=== PATIENT | male | born 1940 | race Caucasian/White ===

== ENCOUNTER 2016-10-29 12:48 | Outpatient (CLI) | payer MEDICARE, OTHER ==
[~2016-10-29] VITALS: Ht 185.4 cm; Wt 80.3 kg
[~2016-10-29 12:48] MED LIST: AC500T PO; AMLO10TA2 PO; AMLO5TAB2 PO; ASPI-892; ATOR40TA70 PO; ATOR80TA; CARV3.12; CLOP75TA; DOCU-143 PO; FAMO20TA5; GLUC1TAB; HYDR-3062 PO; MAGN400C PO; MAGN400T6 PO; MECL25TA56 PO; MULT-608; NAPR-243; NTR.4SL; OLME40TA14; OMEG1CAP74 PO; SCP1.5TD TOP; SOTA120T PO; SOTOLOL; TAMS0.4C98 PO
--- OUTSIDE RECORDS SUMMARY | 2016-10-29 12:52 | XMS REPORT | Continuity of Care Document ---
Author Author [facility] Organization [facility] Address Unknown Phone Unavailable Care Team Providers Care Certified Wellness Program Coordinator Name Role Phone JANES NAYLOR DO PCP Insurance Providers Payer Name Policy Number Subscriber Name Relationship Wps Medicare [id number] Aggie Mitchell 18 Self / Same As Patient [facility] [id number] Aggie Mitchell 18 Self / Same As Patient Advance Directives Directive Response Recorded Date/Time Advance Directives Yes 10/09/16 9:37am Health Care Power of Ict Business Analyst Yes 10/09/16 9:37am Organ Donor Yes 02/22/15 9:42am Resuscitation Status Full Code 10/09/16 9:37am Problems No problem information available. Medications Current Home Medications Medication Dose Units Route Directions Days/Qty Instructions Start Date Olmesartan 40 Mg Daily 07/11/09 Clopidogrel Bisulfate 75 Mg Daily 07/11/09 Aspirin 81 Mg Daily 07/11/09 Nitroglycerin 0.4 Mg As Needed 07/11/09 Acetaminophen 500 Mg 500 Mg Oral Twice A Day 06/01/12 Sotalol Hcl 120 Mg 120 Mg Oral Twice A Day 12/08/12 Magnesium Oxide 400 Mg 400 Mg Oral Twice A Day 12/08/12 Amlodipine Besylate 10 Mg 10 Mg Oral Daily 10/09/16 Atorvastatin Calcium 40 Mg 40 Mg Oral Bedtime 10/09/16 Tamsulosin Hcl 0.4 Mg 0.4 Mg Oral Bedtime 10/09/16 Past Home Medications Medication Directions Ordered Status Carvedilol 3.125 Mg Tablet, 07/11/09 Discontinued Famotidine (Pepcid) 20 Mg Tablet, 07/11/09 Discontinued Atorvastatin Calcium 80 Mg Tablet, Bedtime 07/11/09 Discontinued Multivitamins 1 Tab Tablet, Daily 07/11/09 Discontinued Gluc/Francis-Msm#1/C/Leonardo/Anibal/Bor 1 Each Tablet, 07/11/09 Discontinued [place]-3/Dha/Epa/Fish Oil 1,000 Mg Capsule, 3000 Mg Oral Daily 06/01/12 Discontinued Magnesium Oxide 400 Mg Tablet, 1 Each Oral Twice A Day With Meals 06/01/12 Discontinued [Sotolol] , 120 Mg Twice A Day 06/01/12 Discontinued Amlodipine Besylate (Norvasc 5 Mg) 5 Mg Tablet, 5 Mg Oral Daily 06/01/12 Discontinued Meclizine Hcl 25 Mg Tablet, 1 Each Oral Four Times Daily 06/03/12 Discontinued Scopolamine 1.5 Mg Patch, 1 Ea Topically Every 72 Hours 06/03/12 Discontinued Social History Social History Problem Response Recorded Date/Time Alcohol Use Denies Use 10/09/2016 9:37am Recreational Drug Use No 10/09/2016 9:37am Recent Foreign Travel No 10/09/2016 9:36am Recent Infectious Disease Exposure No 10/09/2016 9:36am Sexually Transmitted Disease No 10/09/2016 9:37am HIV/AIDS No 10/09/2016 9:37am Smoking Status Former Smoker 10/09/2016 9:37am Recent Hopitalizations No 10/09/2016 9:37am Sexually Transmitted Disease No 10/09/2016 9:37am Query Response Start Date Stop Date Smoking Status Former Smoker Hospital Discharge Instructions No hospital discharge instructions. Plan of Care Discharge Date 10/09/16 12:31pm Prescriptions See Medication Section Functional Status No functional status results. Allergies, Adverse Reactions, Alerts Allergen Type Severity Reaction Status Last Updated Iodinated Contrast Media - IV Dye Allergy Unknown rash Active 10/09/16 Immunizations No immunization records. Vital Signs Acute Vital Signs Vital Response Date/Time Pulse Rate (adult) 60 bpm (60 - 90) 10/09/2016 9:47am Respiratory Rate 16 bpm (12 - 24) 10/09/2016 9:47am O2 Sat by Pulse Oximetry 99 % (88 - 100) 10/09/2016 9:47am Blood Pressure 123/70 mm Hg 10/09/2016 9:47am Blood Pressure Mean 87 mm Hg 10/09/2016 9:47am Pain Numeric Pain Scale 0-No Pain 10/09/2016 9:47am Height (Feet) 6 feet 10/09/2016 9:34am Height (Inches) 1.00 inches 10/09/2016 9:34am Height (Calculated Centimeters) 185.308714 cm 10/09/2016 9:34am Weight (Pounds) 179 pounds 10/09/2016 9:34am Weight (Ounces) 1.0 oz 10/09/2016 9:34am Weight (Calculated Grams) 18138.39 gm 10/09/2016 9:34am Weight (Calculated Kilograms) 81.157413 kilograms 10/09/2016 9:34am Calculated BMI 23.6 10/09/2016 9:34am Results No known relevant diagnostic tests, laboratory data and/or discharge summary. Procedures No known history of procedures. Encounters Encounter Location Arrival/Admit Date Discharge/Depart Date Attending Provider Departed Clinic [facility] 10/09/16 9:29am 10/09/16 12: 31pm ARIEL STOLL DO
[2016-10-29 12:58] VITALS: BP 125/74
[2016-10-29] MEDS ORDERED: ASPI-586 PO (13:04)
[2016-10-29] MEDS ORDERED: CLOP75TA69 PO (13:04)
== END 2016-10-29 13:05 | disposition home or self-care (01) ==
LOC: PREOP 12:48
PROVIDERS: ATTEND Surgery
DX: Z01.818 Encounter for other preprocedural examination (principal); Z11.2 Encounter for screening for other bacterial diseases; D03.4 Melanoma in situ of scalp and neck
CPT/HCPCS: 87081

== ENCOUNTER 2016-10-31 11:46 | Day surgery (SDC) | payer MEDICARE, OTHER ==
[~2016-10-31] VITALS: Ht 185.4 cm; Wt 80.3 kg
[~2016-10-31 11:46] MED LIST changes: +ASPI-586 PO; +CLOP75TA69 PO
--- OUTSIDE RECORDS SUMMARY | 2016-10-31 11:49 | XMS REPORT | Continuity of Care Document ---
Author Author [facility] Organization [facility] Address Unknown Phone Unavailable Care Team Providers Care Right Of Way Manager Name Role Phone JANES NAYLOR DO PCP Insurance Providers Payer Name Policy Number Subscriber Name Relationship Wps Medicare [id number] Aggie Mitchell 18 Self / Same As Patient [facility] [id number] Aggie Mitchell 20 Self / Same As Patient Advance Directives Directive Response Recorded Date/Time Advance Directives Yes 10/09/16 9:37am Health Care Power of Interior Horticulturist Yes 10/09/16 9:37am Organ Donor Yes 02/22/15 [...] Discontinued Gluc/Francis-Msm#1/C/Leonardo/Anibal/Bor 1 Each Tablet, 07/11/09 Discontinued [place]-3/Dha/Epa/Fish Oil 1,000 Mg Capsule, 3000 Mg Oral [...] 1.00 inches 10/09/2016 9:34am Height (Calculated Centimeters) 185.621617 cm 10/09/2016 9:34am Weight (Pounds) 179 pounds 10/09/2016 9:34am Weight (Ounces) 1.0 oz 10/09/2016 9:34am Weight (Calculated Grams) 01609.39 gm 10/09/2016 9:34am Weight (Calculated Kilograms) 81.846060 kilograms 10/09/2016 9:34am Calculated BMI 23.6 10/09/2016 9:34am Results No known relevant diagnostic tests, laboratory data and/or discharge summary. Procedures No known history of procedures. Encounters Encounter Location Arrival/Admit Date Discharge/Depart Date Attending Provider Departed Clinic [facility] 10/09/16 9:29am 10/09/16 12: 31pm ARIEL STOLL DO
--- OUTSIDE RECORDS SUMMARY | 2016-10-31 11:49 | XMS REPORT | Continuity of Care Document ---
Author Author [facility] Organization [facility] Address Unknown Phone Unavailable Care Team Providers Care Resistor Coater Name Role Phone JANES NAYLOR DO PCP Insurance Providers Payer Name Policy Number Subscriber Name Relationship Wps Medicare [id number] Aggie Mitchell 18 Self / Same As Patient [facility] [id number] Aggie Mitchell 20 Self / Same As Patient Advance Directives Directive Response Recorded Date/Time Advance Directives Yes 10/09/16 9:37am Health Care Power of Relocation Commissioner Yes 10/09/16 9:37am Organ Donor Yes 02/22/15 [...] Discontinued Gluc/Francis-Msm#1/C/Leonardo/Anibal/Bor 1 Each Tablet, 07/11/09 Discontinued [place]-3/Dha/Epa/Fish Oil 1,000 Mg Capsule, 3000 Mg Oral [...] 1.00 inches 10/09/2016 9:34am Height (Calculated Centimeters) 185.037623 cm 10/09/2016 9:34am Weight (Pounds) 179 pounds 10/09/2016 9:34am Weight (Ounces) 1.0 oz 10/09/2016 9:34am Weight (Calculated Grams) 60302.39 gm 10/09/2016 9:34am Weight (Calculated Kilograms) 81.631971 kilograms 10/09/2016 9:34am Calculated BMI 23.6 10/09/2016 9:34am Results No known relevant diagnostic tests, laboratory data and/or discharge summary. Procedures No known history of procedures. Encounters Encounter Location Arrival/Admit Date Discharge/Depart Date Attending Provider Departed Clinic [facility] 10/09/16 9:29am 10/09/16 12: 31pm ARIEL STOLL DO
[2016-10-31] MEDS ORDERED: NORMAL SALINE (BAXTER MINI) 50 ML IV ONE (11:54)
[2016-10-31] MEDS ORDERED: ceFAZolin 1,000 MG (ANCEF) VIAL ONE (11:54)
[2016-10-31] MEDS ORDERED: LIDOCAINE 1% INJ 20 ML (XYLOCAINE) VIAL ONE (12:00)
[2016-10-31] MEDS ORDERED: BUPIVACAINE 0.5% 30 ML (SENSORCAINE) VIAL ONE (12:00)
[2016-10-31] MEDS ORDERED: LACTATED RINGERS 1,000 ML IV PRN (12:05)
[2016-10-31] MEDS ORDERED: ceFAZolin 1 GM/NS 50 ML IVPB IV ONE ×2 (12:15)
[2016-10-31] MEDS ORDERED: LACTATED RINGERS 1,000 ML IV ONE (12:28)
[2016-10-31] MEDS ORDERED: MIDAZOLAM 2 MG/2 ML (VERSED) VIAL ONE (12:28)
[2016-10-31] MEDS ORDERED: LIDOCAINE PF 2% 10 ML (XYLOCAINE) AMP ONE (12:28)
[2016-10-31] MEDS ORDERED: proPOfol 200 MG/20 ML (DIPRIVAN) VIAL IV ONE (12:28)
[2016-10-31] MEDS ORDERED: HYDR-3062 PO (12:33)
--- NOTE | 2016-10-31 12:37 | Discharge Inst-Simple/Standard ---
Discharge Inst-Standard Discharge Medications New, Converted or Re-Newed RX: RX on Chart Patient Instructions/Follow Up Plan of Care/Instructions/FU: Follow up with Dr. Browning in 12-14 days Hold aspirin and plavix for 3 more days Keep incision clean and dry Activity as Tolerated: No Discharge Diet: No Restrictions Other Inst to Patient Follow up Appt: Make appointment for 12- 14 days. Instructions: No lifting greater than 10 pounds. No strenuous activity. May shower in 24 hours, no tub bath or soaking. Use incentive spirometer at home as directed. No Smoking Skin/Wound Care: May remove bandages. You need to leave the white strips over incision on they will fall off on their own. Symptoms to Report: Appetite Changes, Extremity Discoloration, Numbness/Tingling, Swelling Increased , Bleeding Excessive, Eyesight Changes, Pain Increased, Urine Color Change, Constipation(Persistent), Fever over 101 degree F, Pain/Pressure in chest, Urinating Difficulty, Cough Up/Vomit Blood, Heart Beat Irreg/Pounding, Pain/ Pressure in jaw, Vaginal Bleeding Increase, Cramps in feet or legs, Lightheadedness, Pain/Pressure in shoulder, Diarrhea(Persistent), Memory Changes Suddenly, Questions/Concerns, Weight gain consecutive days, Dizziness/ Fainting, Nausea/Vomiting, Shortness of Breath, Weight gain over 2 pounds If questions or concerns contact your physician Or seek help at emergency department. MICHAEL BRYANT APRN Oct 31, 2016 12:37
--- NOTE | 2016-10-31 12:43 | Progress Note-Pre Operative ---
Pre-Operative Progress Note H&P Reviewed The H&P was reviewed, patient examined and no changes noted. Date H&P Reviewed: Oct 31, 2016 Time H&P Reviewed: 12:42 Pre-Operative Diagnosis: melanoma in situ ARIEL STOLL DO Oct 31, 2016 12:43
[2016-10-31 13:07] VITALS: BP 120/70
--- NOTE | 2016-10-31 13:32 | Progress Note-Post Operative ---
Post-Operative Progess Note Pre-Operative Diagnosis melanoma in situ Post-Operative Diagnosis same Post-Op Procedure Note Date of Procedure: Oct 31, 2016 Name of Procedure: reexcision scalp melanoma in situ 4.5 x 1.8 cm Procedure Note/Findings see note Anesthesia Type mac c local Estimated blood loss (mL): minimal Specimen(s) collected scalp lesion posterior short suture, long suture right lateral STOLL,ARIEL Palacios DO Oct 31, 2016 1:32 pm
[2016-10-31] MEDS ORDERED: ONDANSETRON 4 MG/2 ML (SDV) Z0FRAN IVP PRN (13:45)
[2016-10-31] MEDS ORDERED: morphine INJ 10 MG/ML 1ML (SYR OR VIAL) IVP PRN (13:45)
[2016-10-31 13:55] VITALS: BP 149/87
[2016-10-31] MEDS ORDERED: HYDROcodone/APAP 5 MG/325 MG (LORTAB) TAB ONE (13:59)
[2016-10-31] MEDS ORDERED: HYDROcodone/APAP 5 MG/325 MG (LORTAB) TAB PO ONE (14:15)
[2016-10-31 14:25] VITALS: BP 133/76
[2016-10-31 14:55] VITALS: BP 144/78
[2016-10-31 15:00] VITALS: BP 144/78
--- NOTE | 2016-11-01 07:44 | OPERATIVE REPORT ---
PROCEDURE PHYSICIAN: ARIEL BROWNING DATE OF PROCEDURE: 10/31/2016 PREOPERATIVE DIAGNOSIS: Melanoma in situ. POSTOPERATIVE DIAGNOSIS: Melanoma in situ. PROCEDURE: Reexcision of scalp melanoma in situ 4.5 x 1.8 cm. SURGEON: Dr. Browning. ANESTHESIA: MAC with local. COMPLICATIONS: None. ESTIMATED BLOOD LOSS: Minimal. INDICATIONS: The patient is a 76-year-old male with a melanoma in situ of the scalp. He had previous excision which did not have negative margins. The patient was explained risk and benefits of the procedure and wished to proceed with the procedure. Consent was signed on the chart. PROCEDURE: The patient was taken to the operating suite. He was prepped and draped in sterile fashion. A surgical pause was performed. Local anesthetic was infiltrated into the scalp. An elliptical incision measuring 4.5 x 1.8 cm around the existing scar was made. Cautery was used to achieve hemostasis as the skin and subcutaneous tissues were removed. Once removed, the skin had to be mobilized; therefore, cautery was used to go circumferentially in order to mobilize the skin. The skin was then closed using 2-0 nylon in a simple interrupted fashion. The patient tolerated the procedure well without any complications. He was taken to recovery room in stable condition. Job ID: [id number] Dictated Date: 10/31/2016 13:31:54 Imaging Analyst Date: 11/01/2016 07:41:13 / spencer
== END 2016-10-31 15:00 | disposition home or self-care (01) ==
LOC: SDC 11:46
PROVIDERS: ATTEND Surgery
DX: D03.4 Melanoma in situ of scalp and neck (principal)

== ENCOUNTER 2016-12-04 10:06 | Outpatient (RCR) | payer MEDICARE, OTHER ==
--- OUTSIDE RECORDS SUMMARY | 2016-12-04 10:09 | XMS REPORT | Continuity of Care Document ---
Author Author [facility] Organization [facility] Address Unknown Phone Unavailable Care Team Providers Care Captain Fishing Vessel Name Role Phone JANES NAYLOR DO PCP Insurance Providers Payer Name Policy Number Subscriber Name Relationship Wps Medicare [id number] Aggie Mitchell 20 Self / Same As Patient [facility] [id number] Aggie Mitchell 20 Self / Same As Patient Advance Directives Directive Response Recorded Date/Time Advance Directives Yes 10/09/16 9:37am Health Care Power of Medical Transcription Yes 10/09/16 9:37am Organ Donor Yes 02/22/15 [...] Discontinued Gluc/Francis-Msm#1/C/Leonardo/Anibal/Bor 1 Each Tablet, 07/11/09 Discontinued [place]-3/Dha/Epa/Fish Oil 1,000 Mg Capsule, 3000 Mg Oral [...] 1.00 inches 10/09/2016 9:34am Height (Calculated Centimeters) 185.536774 cm 10/09/2016 9:34am Weight (Pounds) 179 pounds 10/09/2016 9:34am Weight (Ounces) 1.0 oz 10/09/2016 9:34am Weight (Calculated Grams) 57420.39 gm 10/09/2016 9:34am Weight (Calculated Kilograms) 81.266104 kilograms 10/09/2016 9:34am Calculated BMI 23.6 10/09/2016 9:34am Results No known relevant diagnostic tests, laboratory data and/or discharge summary. Procedures No known history of procedures. Encounters Encounter Location Arrival/Admit Date Discharge/Depart Date Attending Provider Departed Clinic [facility] 10/09/16 9:29am 10/09/16 12: 31pm ARIEL TSOLL DO
== END 2017-03-04 | disposition home or self-care (01) ==
LOC: ONC 10:06
PROVIDERS: ATTEND Internal Medicine Hematology & Oncology
DX: D03.4 Melanoma in situ of scalp and neck (principal); I25.10 Atherosclerotic heart disease of native coronary artery without angina pectoris; I11.0 Hypertensive heart disease with heart failure; I50.9 Heart failure, unspecified; E78.5 Hyperlipidemia, unspecified; I27.2 Other secondary pulmonary hypertension; Z79.899 Other long term (current) drug therapy
CPT/HCPCS: 99214

== ENCOUNTER → 2017-09-03 | Outpatient (CLI) | payer MEDICARE, BC | LOC: CARD 10:43 | PROVIDERS: ATTEND Internal Medicine Cardiovascular Disease | DX: I51.7 Cardiomegaly (principal); I34.0 Nonrheumatic mitral (valve) insufficiency; I35.9 Nonrheumatic aortic valve disorder, unspecified | CPT/HCPCS: 93306 ==

== ENCOUNTER → 2017-09-08 | Outpatient (CLI) | payer MEDICARE, BC ==
[~2017-09-08] MED LIST changes: +CATHETER FLUSH 10 ML SYR IV PRN; +REGADENOSON 0.4 MG/5 ML SYR (LEXISCAN) IV ONE
[2017-09-08 09:42] VITALS: BP 137/80
--- NOTE | 2017-09-08 23:01 | STRESS TEST ---
DATE OF SERVICE: 09/08/2017 LEXISCAN MYOVIEW STRESS TEST REPORT Baseline heart rate is 67. Baseline blood pressure 137/80. Baseline EKG is sinus rhythm with no ischemic changes. In summary, the patient was injected with 9.95 mCi of technetium-99 Myoview and the resting images were obtained. Then, the patient received 0.4 mg of Lexiscan followed by 31.2 mCi of technetium-99 Myoview. Throughout the test, there were no EKG changes. The resting and stress images were reviewed and compared in the short axis, horizontal long axis, and vertical long axis views. Review of the images showed diaphragmatic attenuation with mild decreased uptake at the inferoapical segment, which appeared to be fixed. No significant ischemia was noted. SSS is 2, SDS is 0. TID value is 0.93. On the gated images, the left ventricle appeared to be normal size with normal contractility. Calculated ejection fraction is 51%. CONCLUSION: 1. The patient tolerated Lexiscan well. 2. Diaphragmatic attenuation with typical male pattern. No significant ischemia was noted or infarction. 3. Normal left ventricular size with normal contractility, calculated ejection fraction 51%. Job ID: [id number] DocumentID: [id number] Dictated Date: 09/08/2017 16:49:36 Spot Cleaner Date: 09/08/2017 20:17:04 Dictated By: DANIEL GARCIA MD
== END ==
LOC: CARD 08:06
PROVIDERS: ATTEND Internal Medicine Cardiovascular Disease
DX: I25.10 Atherosclerotic heart disease of native coronary artery without angina pectoris (principal); I11.0 Hypertensive heart disease with heart failure; I50.22 Chronic systolic (congestive) heart failure; E78.2 Mixed hyperlipidemia; I49.3 Ventricular premature depolarization
CPT/HCPCS: 78452; 93017

== ENCOUNTER → 2017-12-01 | Outpatient (CLI) | payer MEDICARE, BC ==
[~2017-12-01] MED LIST changes: -CATHETER FLUSH 10 ML SYR IV PRN; -REGADENOSON 0.4 MG/5 ML SYR (LEXISCAN) IV ONE
== END ==
LOC: ONC 08:58
PROVIDERS: ATTEND Internal Medicine Hematology & Oncology
DX: Z08 Encounter for follow-up examination after completed treatment for malignant neoplasm (principal); Z85.820 Personal history of malignant melanoma of skin; Z79.899 Other long term (current) drug therapy
CPT/HCPCS: 99213

== ENCOUNTER 2019-05-04 06:07 | Day surgery (SDC) | payer MEDICARE, BC ==
[~2019-05-04] VITALS: Ht 185.4 cm; Wt 80.3 kg
[2019-05-04] VITALS (10 sets, daily range): BP systolic 109–127; BP diastolic 70–78
[~2019-05-04 06:07] MED LIST changes: +ACET-93 PO; -AMLO10TA2 PO; +AMLO10TA7 PO; +MAGN400T7 PO; +OLME40TA18 PO; +OXYB10TA PO
[2019-05-04] MEDS ORDERED: LACTATED RINGERS 1,000 ML IV PRN (06:26)
[2019-05-04] MEDS ORDERED: cefTRIAXone FOR IV USE 1,000 MG in WATER (STERILE) FOR INJECTION 10 ML IV ONE (06:30)
[2019-05-04] MEDS ORDERED: ONDANSETRON 4 MG/2 ML (SDV) Z0FRAN ONE (06:57)
[2019-05-04] MEDS ORDERED: proPOfol 200 MG/20 ML (DIPRIVAN) VIAL IV ONE (06:57)
[2019-05-04] MEDS ORDERED: DEXAMETHASONE 10 MG/ML (DECADRON) 1 ML VIAL ONE (06:57)
[2019-05-04] MEDS ORDERED: LIDOCAINE PF 2% 5 ML (XYLOCAINE) VIAL ONE (06:57)
--- NOTE | 2019-05-04 06:57 | Progress Note-Pre Operative ---
Pre-Operative Progress Note H&P Reviewed The H&P was reviewed, patient examined and no changes noted. Date Seen by Provider: May 04, 2019 Time Seen by Provider: 06:57 Date H&P Reviewed: May 04, 2019 Time H&P Reviewed: 06:57 Pre-Operative Diagnosis: BPH WITH PROSTATISM HEBER LANDERS MD May 04, 2019 06:57
[2019-05-04] MEDS ORDERED: fentaNYL INJECTION 100 MCG/2 ML AMP ONE (06:58)
--- NOTE | 2019-05-04 07:01 | Progress Note-Post Operative ---
Post-Operative Progess Note Surgeon (s)/Corporate Executive (s) Surgeon HEBER LANDERS MD Corporate Executive: NONE Pre-Operative Diagnosis BPH WITH PROSTATISM Post-Operative Diagnosis SAME Procedure & Operative Findings Date of Procedure 05/04/19 Procedure Performed/Findings UROLIFT IMPLANTS Anesthesia Type GENERAL Estimated Blood Loss Estimated blood loss (mL): NEGLIGIBLE Specimens/Packing Specimens Removed NONE Packing: LINCOLN TO HEBER GUTIERREZ MD May 04, 2019 07:01
--- NOTE | 2019-05-04 07:04 | Discharge Inst-Urology ---
Discharge Inst-Urology Discharge Medications New, Converted, or Re-newed RX: RX on Chart Patient Instructions/Follow Up Plan Please make appointment to been seen in office in 2 weeks. Rest till then Off ASA, Flomax, and Oxybutin Keep bowels soft and moving Increase oral fluids for 48 hours and then as needed. Diet as tolerated. If questions or concerns contact your physician Or seek help at emergency department. HEBER LANDERS MD May 04, 2019 07:04
[2019-05-04] MEDS ORDERED: PHEN-640 PO (07:23)
[2019-05-04] MEDS ORDERED: SULF1TAB35 PO (07:23)
[2019-05-04] MEDS ORDERED: SEVOFLURANE (ULTANE) 15 ML INHAL SOLN ONE (07:52)
[2019-05-04] MEDS ORDERED: MEPERIDINE (DEMEROL) INJ 50 MG/ML IVP ONE (08:15)
[2019-05-04] MEDS ORDERED: morphine INJ 10 MG/ML 1ML (SYR OR VIAL) IVP ONE (08:15)
[2019-05-04] MEDS ORDERED: ONDANSETRON 4 MG/2 ML (SDV) Z0FRAN IVP PRN (08:15)
[2019-05-04] MEDS ORDERED: PHENAZOPYRIDINE 100 MG (PYRIDIUM) TABLET ONE (08:54)
[2019-05-04] MEDS ORDERED: PHENAZOPYRIDINE 100 MG (PYRIDIUM) TABLET PO ONE (09:15)
--- NOTE | 2019-05-04 09:25 | OPERATIVE REPORT ---
DATE OF SERVICE: 05/04/2019 PREOPERATIVE DIAGNOSIS: BPH with prostatism. POSTOPERATIVE DIAGNOSIS: BPH with prostatism. OPERATION PERFORMED: UroLift implants. SURGEON: Naren Landers MD ANESTHESIA: General. COMPLICATIONS: None. DESCRIPTION OF PROCEDURE: Under satisfactory general anesthesia, the patient in lithotomy position, genitalia were prepped and draped in the usual sterile fashion. A special scope of the UroLift was inserted and the bladder was emptied. I went ahead and inserted the UroLift implant, starting first on the left lateral lobe, 1.5 cm from the bladder neck using the described technique and similarly on the right side. Then backed up and the third UroLift was put just proximal to veru on both sides. There was excellent opening of the channel. There was some oozing from the bladder neck area. I elected to leave the catheter until he wakes up and see how it looks. So, I inserted a 22-Nepali 3-way 10 mL balloon catheter and inflated the balloon to 10 mL, and put it on some traction to control the bleeding and see how he does when he wakes up to the sign of the catheter. Estimated blood loss was negligible. The patient tolerated the procedure and anesthesia well and was sent to recovery room in stable condition. Job ID: [id number] DocumentID: [id number] Dictated Date: 05/04/2019 08:10:07 Cableman Date: 05/04/2019 09:24:39 Dictated By: NAREN LANDERS MD
--- NOTE | 2019-05-04 10:25 | NUR ---
DR. LANDERS SAID TO REMOVE THE LINCOLN AND SEND THE PATIENT HOME.
--- NOTE | 2019-05-04 11:34 | Anesthesia-General Post-Op ---
General Patient Condition Mental Status/LOC: Same as Preop Cardiovascular: Satisfactory Nausea/Vomiting: Absent Respiratory: Satisfactory Pain: Controlled Complications: Absent Post Op Complications Complications None Follow Up Care/Instructions Patient Instructions None needed. Anesthesia/Patient Condition Patient Condition Patient was seen this morning after the procedure and he was doing well, no complaints, stable vital signs, no apparent adverse anesthesia problems. SAMARA BAUTISTA DO May 04, 2019 11:34
== END 2019-05-04 10:45 | disposition home or self-care (01) ==
LOC: SDC 06:07
PROVIDERS: ATTEND Urology
DX: N40.1 Benign prostatic hyperplasia with lower urinary tract symptoms (principal); N32.81 Overactive bladder; I11.0 Hypertensive heart disease with heart failure; I50.9 Heart failure, unspecified; I25.10 Atherosclerotic heart disease of native coronary artery without angina pectoris; M19.91 Primary osteoarthritis, unspecified site; Z85.820 Personal history of malignant melanoma of skin; Z11.2 Encounter for screening for other bacterial diseases; Z87.891 Personal history of nicotine dependence; Z79.82 Long term (current) use of aspirin; Z79.899 Other long term (current) drug therapy
CPT/HCPCS: 87081

== ENCOUNTER → 2019-07-27 | Outpatient (CLI) | payer MEDICARE, BC ==
[~2019-07-27] MED LIST changes: +PHEN-640 PO; +SULF1TAB35 PO
== END ==
LOC: CARD 11:35
PROVIDERS: ATTEND Internal Medicine Cardiovascular Disease
DX: I34.0 Nonrheumatic mitral (valve) insufficiency (principal); I49.5 Sick sinus syndrome; I49.3 Ventricular premature depolarization; E78.5 Hyperlipidemia, unspecified; I11.9 Hypertensive heart disease without heart failure; I25.10 Atherosclerotic heart disease of native coronary artery without angina pectoris
CPT/HCPCS: 93306

== ENCOUNTER → 2020-08-02 | Outpatient (CLI) | payer MEDICARE, BC ==
[~2020-08-02] VITALS: Ht 193 cm; Wt 81.0 kg
[~2020-08-02] MED LIST changes: +ACHD5005 PO; +CATHETER FLUSH 10 ML SYR IV PRN; -HYDR-3062 PO; -OXYB10TA PO; +OXYB10TA29 PO; +REGADENOSON 0.4 MG/5 ML SYR (LEXISCAN) IV ONE; -TAMS0.4C98 PO; +TMSL.4C PO
[2020-08-02 09:08] VITALS: BP 136/80
[2020-08-02 09:17] VITALS: BP 136/80
[2020-08-02 09:18] VITALS: BP 123/69
--- NOTE | 2020-08-02 12:39 | Cardiology Stress Test Report ---
Stress Test Report Date of Procedure/Referring: Date of Procedure: Aug 02, 2020 PCP Daniel Cat MD Admitting Physician Diamond Cerna DO Indications: Coronary artery disease Baseline Heart Rate: 64 Baseline Blood Pressure: Blood Pressure Systolic: 123 Blood Pressure Diastolic: 69 Baseline Vitals Vital Signs Date Time Temp Pulse Resp B/P (MAP) Pulse Ox O2 Delivery O2 Flow Rate FiO2 08/02/20 09:08 81 17 136/80 (98) 99 Room Air Baseline EKG: Baseline EKG: normal sinus rhythm Summary After explaining the procedure to the patient, he signed a consent and then brought to the stress nuclear laboratory. Patient received 0.4 mg Lexiscan for stress test, ECG, heart rate and blood pressure were monitored continuously. Resting and stress dose of radio tracer were injected, imaging was acquired and reviewed in short axis, horizontal long axis and vertical long axis views. TID: 0.97 SSS: 4 SDS: 0 EF: 50 1. Patient tolerated Lexiscan well 2. Frequent premature ventricular contractions, ventricular bigeminy induced by Lexiscan injection 3. Significant extracardiac attenuation affecting the quality of the images, there is decreased uptake involving the whole inferior wall and inferolateral wall, no significant reversibility was noted due to the extracardiac att enuation. Still overall nondiagnostic study 4. Normal left ventricular size, inferior wall hypokinesia, EF 50 percent DANIEL CAT MD Aug 02, 2020 12:39
== END ==
LOC: CARD 07:45
PROVIDERS: ATTEND Internal Medicine Cardiovascular Disease
DX: I25.10 Atherosclerotic heart disease of native coronary artery without angina pectoris (principal); I50.22 Chronic systolic (congestive) heart failure; I11.0 Hypertensive heart disease with heart failure; E78.2 Mixed hyperlipidemia; I49.5 Sick sinus syndrome
CPT/HCPCS: 78452; 93017; A9502

== ENCOUNTER → 2020-09-20 | Outpatient (CLI) | payer MEDICARE, BC ==
[~2020-09-20] MED LIST changes: +AMLO-251 PO; -AMLO10TA7 PO; -CATHETER FLUSH 10 ML SYR IV PRN; -REGADENOSON 0.4 MG/5 ML SYR (LEXISCAN) IV ONE
== END ==
LOC: CARD 10:00
PROVIDERS: ATTEND Internal Medicine Cardiovascular Disease
DX: I25.10 Atherosclerotic heart disease of native coronary artery without angina pectoris (principal); I08.1 Rheumatic disorders of both mitral and tricuspid valves
CPT/HCPCS: 93306

== ENCOUNTER → 2020-10-16 | Outpatient (CLI) | payer MEDICARE, BC | LOC: CARD 08:30 | PROVIDERS: ATTEND Family Medicine | DX: R00.1 Bradycardia, unspecified (principal); Z53.8 Procedure and treatment not carried out for other reasons ==

== ENCOUNTER → 2021-01-08 | Outpatient (CLI) | payer MEDICARE, BC | LOC: LABNPT 07:13 | PROVIDERS: ATTEND Orthopaedic Surgery | DX: Z01.812 Encounter for preprocedural laboratory examination (principal); Z20.822 Contact with and (suspected) exposure to COVID-19 | CPT/HCPCS: 87635 ==

== ENCOUNTER → 2021-09-24 | Outpatient (CLI) | payer MEDICARE, BC ==
[~2021-09-24] MED LIST changes: -SULF1TAB35 PO; +SULF1TAB38 PO
== END ==
LOC: CARD 13:30
PROVIDERS: ATTEND Internal Medicine Cardiovascular Disease
DX: I08.1 Rheumatic disorders of both mitral and tricuspid valves (principal); I11.9 Hypertensive heart disease without heart failure
CPT/HCPCS: 93306

== ENCOUNTER 2022-02-14 06:35 | Outpatient (CLI) | payer MEDICARE, BC ==
[~2022-02-14] VITALS: Ht 185 cm; Wt 88.6 kg
[2022-02-14] MEDS ORDERED: TMSL.4C PO (14:28)
== END 2022-02-14 14:49 | disposition home or self-care (01) ==
LOC: PREOP 06:35
PROVIDERS: ATTEND Surgery
DX: Z01.818 Encounter for other preprocedural examination (principal)

== ENCOUNTER 2022-02-26 11:46 | Day surgery (SDC) | payer MEDICARE, BC ==
[~2022-02-26] VITALS: Ht 185 cm; Wt 88.6 kg
[2022-02-26] MEDS ORDERED: LACTATED RINGERS 1,000 ML IV STA (11:51)
[2022-02-26] MEDS ORDERED: LACTATED RINGERS 1,000 ML IV ONE (11:54)
[2022-02-26 12:13] VITALS: BP 145/79
--- NOTE | 2022-02-26 12:33 | Progress Note-Pre Operative ---
Pre-Operative Progress Note H&P Reviewed The H&P was reviewed, patient examined and no changes noted. Date Seen by Provider: February 26, 2022 Time Seen by Provider: 12:33 Date H&P Reviewed: February 26, 2022 Time H&P Reviewed: 12:33 Pre-Operative Diagnosis: screening colonoscopy ARIEL STOLL DO February 26, 2022 12:33
[2022-02-26] MEDS ORDERED: PROPOFOL INJECTION 50 ML IV ONE (13:05)
[2022-02-26 13:50] VITALS: BP 131/71
[2022-02-26 13:55] VITALS: BP 132/61
--- NOTE | 2022-02-26 13:55 | Discharge Inst-Simple/Standard ---
Discharge Inst-Standard Patient Instructions/Follow Up Plan of Care/Instructions/FU: Nma on as needed basis Activity as Tolerated: Yes Discharge Diet: Regular Diet (high fiber) ARIEL STOLL DO February 26, 2022 13:55
--- NOTE | 2022-02-26 14:08 | Anesthesia-General Post-Op ---
MAC Patient Condition Mental Status/LOC: Same as Preop Cardiovascular: Satisfactory Nausea/Vomiting: Absent Respiratory: Satisfactory Pain: Controlled Complications: Absent Post Op Complications Complications None Follow Up Care/Instructions Patient Instructions None needed. Anesthesiology Discharge Order Discharge Order Patient is doing well, no complaints, stable vital signs, no apparent adverse anesthesia problems. SAMARA BAUTISTA DO February 26, 2022 14:08
[2022-02-26 14:25] VITALS: BP 132/90
[2022-02-26 14:36] VITALS: BP 132/90
--- NOTE | 2022-02-26 17:59 | OPERATIVE REPORT ---
DATE OF SERVICE: 02/26/2022 PREOPERATIVE DIAGNOSIS: Screening colonoscopy. POSTOPERATIVE DIAGNOSIS: Diverticulosis. PROCEDURE PERFORMED: Colonoscopy. SURGEON: Ariel Browning DO ANESTHESIA: Per MDA. ESTIMATED BLOOD LOSS: None. COMPLICATIONS: None. INDICATIONS FOR PROCEDURE: The patient is a 81-year-old male, who was referred for colonoscopy. He understands risks and benefits of the procedure and wishes to proceed. Consent was signed in the chart. DESCRIPTION OF PROCEDURE: The patient was taken to the endoscopy suite and placed in the left lateral recumbent position. Timeout was performed. Digital rectal exam was performed. No palpable polyps, masses or ulcerations. Scope was inserted in the rectum, advanced all the way to the cecum with minimal difficulty. Prep was adequate. Scope was slowly retracted back. No polyps, masses or ulcerations in the cecum, ascending, transverse, descending and sigmoid colon. Significant diverticulosis through the sigmoid colon. Once in the rectum, scope was retroflexed noting no other pathology. Scope was returned to its normal position, slowly withdrawn until completely removed. The patient tolerated the procedure well without any complications and taken to the recovery room in stable condition. RECOMMENDATIONS: The patient does not need any further colonoscopies unless is symptomatic. The patient will follow up on as-needed basis. We would recommend high fiber diet. Job ID: [id number] DocumentID: [id number] Dictated Date: 02/26/2022 13:53:52 Storage Battery Inspector Date: 02/26/2022 17:59:10 Dictated By: ARIEL BROWNING DO
== END 2022-02-26 14:40 | disposition home or self-care (01) ==
LOC: ENDO 11:46
PROVIDERS: ATTEND Surgery
DX: Z12.11 Encounter for screening for malignant neoplasm of colon (principal); K57.30 Diverticulosis of large intestine without perforation or abscess without bleeding; Z87.891 Personal history of nicotine dependence; Z79.82 Long term (current) use of aspirin; Z95.5 Presence of coronary angioplasty implant and graft

== ENCOUNTER → 2022-12-11 | Outpatient (CLI) | payer MEDICARE, BC ==
[~2022-12-11] MED LIST changes: +CLOP-31 PO; -CLOP75TA69 PO
[2022-12-11 16:05] LABS: BASOPHILS # (AUTO) 0.1 10^3/uL (0.0-0.1); BASOPHILS % (AUTO) 1 % (0-10); EOSINOPHILS # (AUTO) 0.1 10^3/uL (0.0-0.3); EOSINOPHILS % (AUTO) 1 % (0-10); HEMATOCRIT 42 % (40-54); HEMOGLOBIN 13.9 g/dL (13.3-17.7); LYMPHOCYTES # (AUTO) 1.3 10^3/uL (1.0-4.0); LYMPHOCYTES % (AUTO) 13 % (12-44); MEAN CORPUSCULAR HEMOGLOBIN 28 pg (25-34); MEAN CORPUSCULAR HGB CONC 33 g/dL (32-36); MEAN CORPUSCULAR VOLUME 85 fL (80-99); MEAN PLATELET VOLUME 11.2 fL (9.0-12.2); MONOCYTES # (AUTO) 1.6 10^3/uL (0.0-1.0); MONOCYTES % (AUTO) 17 % (0-12); NEUTROPHILS # (AUTO) 6.3 10^3/uL (1.8-7.8); NEUTROPHILS % (AUTO) 67 % (42-75); PLATELET COUNT 193 10^3/uL (130-400); WHITE BLOOD COUNT 9.4 10^3/uL (4.3-11.0)
--- NOTE | 2022-12-11 16:12 | Diagnostic Imaging Report ---
INDICATION: Cough. FINDINGS: The pacemaker device is stable. The heart is mildly enlarged but no failure, vascular congestion, edema, pneumonia, effusion, or pneumothorax. IMPRESSION: No acute appearing abnormality. Dictated by: Dictated on workstation # [id number]
[2022-12-11 16:16] LABS: POTASSIUM 4.1 MMOL/L (3.6-5.0)
[2022-12-11 16:17] LABS: CALCIUM 8.8 MG/DL (8.5-10.1)
[2022-12-11 16:18] LABS: TOTAL PROTEIN 6.3 GM/DL (6.4-8.2)
[2022-12-11 16:20] LABS: BILIRUBIN,TOTAL 0.7 MG/DL (0.1-1.0)
[2022-12-11 16:22] LABS: CREATININE SERUM 0.78 MG/DL (0.60-1.30)
[2022-12-11 16:45] LABS: FREE T4 (FREE THYROXINE) 0.98 NG/DL (0.70-1.48)
== END ==
LOC: CARD 15:19
PROVIDERS: ATTEND Family Medicine
DX: U07.1 COVID-19 (principal); I49.9 Cardiac arrhythmia, unspecified; R05.9 Cough, unspecified
CPT/HCPCS: 36415; 71046; 80053; 84439; 84443; 85025; 85379; 86141; 93005

== ENCOUNTER 2023-04-23 15:47 | Emergency (ER) | payer MEDICARE, BC ==
[~2023-04-23] VITALS: Ht 183 cm; Wt 84.0 kg
[2023-04-23 15:56] VITALS: BP 149/64
--- NOTE | 2023-04-23 17:37 | ED GU-Male ---
General Chief Complaint: - Reproductive Stated Complaint: CATHETER LEAKING Nursing Triage Note: PT HAD A AQUBLATION URINARY PROCEDURE DONE IN [place] YESTERDAY, LEG BAG IN PLACE, CC OF LEAKING AROUND THE CATHETER Source: patient Exam Limitations: no limitations History of Present Illness Date Seen by Provider: Apr 23, 2023 Time Seen by Provider: 17:14 Initial Comments 82-year-old male presents to the ER for concerns with his catheter. He states that yesterday he had an aqua ablation of his prostate due to BPH. He left the hospital today with a Vásquez and leg bag. He came in this evening due to leakage around the catheter from his penis. He states he feels as though the catheter is not draining correctly. He denies any fevers. He is scheduled to see his urologist on Friday. There is blood noted in the bag, patient states that his urologist said that this is normal and the color is appropriate. Allergies and Home Medications Allergies Coded Allergies: Iodinated Contrast- Oral and IV Dye (Verified Allergy, Mild, rash, 04/29/19) Patient Home Medication List Home Medication List Reviewed: Yes Acetaminophen (Acetaminophen) 500 Mg Tablet, 500 MG PO DAILY, (Reported) Entered as Reported by: LETI GILES on 04/29/19 1454 Amlodipine Besylate (Amlodipine Besylate) 10 Mg Tablet, 10 MG PO DAILY, (Reported) Entered as Reported by: LETI GILES on 10/09/16 0942 Atorvastatin Calcium (Atorvastatin Calcium) 40 Mg Tablet, 40 MG PO HS, (Reported) Entered as Reported by: LETI GILES on 10/09/16 0942 Magnesium Oxide (Magnesium Oxide) 400 Mg Tablet, 400 MG PO BID, (Reported) Entered as Reported by: LETI GILES on 04/29/19 1459 Olmesartan Medoxomil (Olmesartan Medoxomil) 40 Mg Tablet, 40 MG PO DAILY, (Reported) Entered as Reported by: LETI GILES on 04/29/19 145 Sotalol HCl (Sotalol) 120 Mg Tablet, 120 MG PO BID, (Reported) Entered as Reported by: LETI GILES on 04/29/19 1459 Tamsulosin HCl (Flomax) 0.4 Mg Cap, 0.4 MG PO DAILY, (Reported) Entered as Reported by: DEMOND WHATLEY on 02/14/22 1428 Review of Systems Review of Systems Constitutional: see HPI Past Ssknmex-Abtlrn-Ysckmw Hx Patient Social History Tobacco Use?: No Substance use?: No Alcohol Use?: No Immunizations Up To Date First/Initial COVID19 Vaccinat: 01-11-22 Second COVID19 Vaccination Nacho: 01-11-22 Third COVID19 Vaccination Date: 01-11-22 Seasonal Allergies Seasonal Allergies: No Past Medical History Surgery/Hospitalization HX: AQUBLATION URINARY PROCEDURE, PACE/DEFIB, BPH AND URINARY RETENTION, BI LAT KNEES, NECK FUSION Surgeries: Yes Coronary Stent, Defibrillator, Orthopedic, Pacemaker Respiratory: No Cardiac: Yes (PACER/DEFIB, STENT) Hypertension, Irregular Heartbeat Neurological: No Reproductive Disorders: No Sexually Transmitted Disease: No HIV/AIDS: No Genitourinary: Yes Benign Prostatic Hyperpl Gastrointestinal: No Musculoskeletal: No Arthritis Endocrine: No HEENT: Yes Cataract Loss of Vision: Denies Hearing Impairment: Hard of Hearing Cancer: Yes Melanoma Did You Recieve Any Treatments: Yes What Type of Treatment Did You: Surgical Intervention Psychosocial: No Integumentary: No Blood Disorders: No Adverse Reaction/Blood Tranf: No Physical Exam Vital Signs Vital Signs - First Documented 04/23/23 15:56 Temp 37.1 Pulse 60 Resp 18 B/P (MAP) 149/64 (92) Pulse Ox 96 O2 Delivery Room Air Capillary Refill : Less Than 3 Seconds Height, Weight, BMI Height: 6'1.00" Weight: 177lbs. 0.0oz. [id number]; 25.00 BMI Method: General Appearance: WD/WN, no apparent distress Neck: supple, normal inspection Cardiovascular: regular rate, rhythm Respiratory: lungs clear, normal breath sounds, no respiratory distress, no accessory muscle use Genital/Rectal: blood at urethral meatus, other (Blood in urine in Vásquez) Extremities: normal range of motion, normal inspection Neurologic/Psychiatric: alert, normal mood/affect Skin: normal color Progress/Results/Core Measures Suspected Sepsis SIRS Temperature: Pulse: 60 Respiratory Rate: 18 Blood Pressure 149 /64 Mean: 92 Results/Orders Vital Signs/I&O 04/23/23 15:56 Temp 37.1 Pulse 60 Resp 18 B/P (MAP) 149/64 (92) Pulse Ox 96 O2 Delivery Room Air Capillary Refill : Less Than 3 Seconds Blood Pressure Mean: 92 Progress Note : Progress Note Patient seen and evaluated, resting comfortably in bed, no acute distress. Called [facility] in [place], [place] to speak with patient's urologist. They are going to page his urologist and call me back. 1802 patient later told me that they were told that his catheter would just need to be flushed. We will attempt to flush catheter while waiting on a return phone call from patient's urologist. 1805 nursing staff to flush the catheter, instant return of liquids through Vásquez, no leakage around the Vásquez catheter. There was possibly something clogging the vásquez that resulted in the leakage of urine. I am comfortable discharging at this time without speaking with urology due to catheter being able to be flushed easily, and no continued leakage, patient is not having abdominal pain, and Vásquez appears to be working. Discharge instructions and return precautions provided. 1912 patient has already left, but Dr. Carrion, urology at [facility] in [facility], returned my phone call at this time. He was okay that we flush the catheter and he was okay with discharge since the catheter was working at the time of discharge. Departure Impression Primary Impression: Vásquez catheter problem Disposition: 01 HOME, SELF-CARE Condition: Stable Departure-Patient Inst. Decision time for Depature: 18:10 Referrals: JANES NAYLOR DO (PCP/Family) Primary Care Physician Patient Instructions: Urinary Obstruction (DC) Add. Discharge Instructions: Follow-up with urology as scheduled. Return for no urinary output, severe abdominal pain, or any other new, concerning, or worsening symptoms. All discharge instructions reviewed with patient and/or family. Voiced understanding. JESUS ALBERTO AMADOR APRN Apr 23, 2023 17:37
== END 2023-04-23 18:14 | disposition home or self-care (01) ==
LOC: EDUNIT# 15:47 → ER 15:49
DX: T83.9XXA Unspecified complication of genitourinary prosthetic device, implant and graft, initial encounter (principal); Y73.8 Miscellaneous gastroenterology and urology devices associated with adverse incidents, not elsewhere classified; Z87.438 Personal history of other diseases of male genital organs
CPT/HCPCS: 99283